=== PATIENT | male | born 1950 | race Caucasian/White ===

== ENCOUNTER 2019-11-24 06:49 | Day surgery (SDC) | payer MEDICARE, BC, MEDICAID ==
[2019-11-21 11:55] LABS: BASOPHILS # (AUTO) 0.05 x10^3/uL (0-0.1); BASOPHILS % (AUTO) 1 % (0-1); EOSINOPHILS # (AUTO) 0.15 x10^3/uL (0-0.4); EOSINOPHILS % (AUTO) 2 % (1-7); LYMPHOCYTES # (AUTO) 1.99 x10^3/uL (1-3.4); LYMPHOCYTES % (AUTO) 30 % (22-44); MD NO; MEAN CORPUSCULAR HEMOGLOBIN 33.1 pg (27.5-34.5); MEAN CORPUSCULAR HGB CONC 33.2 g/dL (33.2-36.2); MEAN PLATELET VOLUME 7.4 fL (7.4-10.4); MONOCYTES # (AUTO) 0.52 x10^3/uL (0.2-0.8); MONOCYTES % (AUTO) 8 % (2-9); NEUTROPHILS # (AUTO) 3.89 x10^3/uL (1.8-6.8); NEUTROPHILS % (AUTO) 59 % (42-75); PLATELET COUNT 208 x10^3/uL (130-400); RED BLOOD COUNT 4.86 x10^6/uL (4.38-5.82); RED CELL DISTRIBUTION WIDTH 14.2 % (9.4-14.8)
[2019-11-21 12:02] LABS: ALBUMIN 3.6 g/dL (3.4-5.0); ANION GAP 6 mmol/L (5-15); CALCIUM 8.8 mg/dL (8.5-10.1); CHLORIDE 104 mmol/L (98-107)
[2019-11-21 12:05] LABS: ALANINE AMINOTRANSFERASE 23 U/L (12-78); ALKALINE PHOSPHATASE 63 U/L (45-117); BILIRUBIN,TOTAL 1.3 mg/dL (0.2-1.0); CREATININE 0.94 mg/dL (0.7-1.3); TOTAL PROTEIN 7.5 g/dL (6.4-8.2)
[2019-11-21 12:18] LABS: INTERNATIONAL NORMALIZED RATIO 1.41 (0.93-1.1); PROTHROMBIN TIME 14.6 Seconds (9.6-11.5)
[~2019-11-24] VITALS: Ht 182.9 cm; Wt 105.6 kg
[~2019-11-24 06:49] MED LIST: DIGO250T3 PO; DILT180C53 PO; DILT30TA33; HYDR-3246 PO; METH750T87 PO; METO25TA35 PO; METO50TA82 PO; OXYC-302 PO; PRAV40TA2 PO; STATIN; TRAM50TA2 PO; WARF-36 PO; WARF1TAB74 PO; WARF4TAB65 PO
[2019-11-24] MEDS ORDERED: CHLORHEXIDINE 15 ML UDC MM STA (07:39)
[2019-11-24] MEDS ORDERED: LACTATED RINGERS 1,000 ML IV SCH (07:39)
[2019-11-24 07:40] VITALS: BP 143/97
[2019-11-24 08:32] LABS: INTERNATIONAL NORMALIZED RATIO 1.05 (0.93-1.1); PROTHROMBIN TIME 10.8 Seconds (9.6-11.5)
[2019-11-24] MEDS ORDERED: MIDAZOLAM 1 MG/ML, 2ML ONE (09:17)
[2019-11-24] MEDS ORDERED: FENTANYL PF 100 MCG/2ML ONE (09:17)
[2019-11-24] MEDS ORDERED: BACITRACIN OINT 500U/GM, 15 GM ONE (09:39)
[2019-11-24] MEDS ORDERED: BUPIVACAINE/PF 0.5% ONE (09:39)
[2019-11-24] MEDS ORDERED: BACITRACIN 50,000 UNIT ONE (09:39)
[2019-11-24] MEDS ORDERED: hydrALAzine 20 MG/ML, 1ML IV PRN (10:30)
[2019-11-24] MEDS ORDERED: LABETALOL 5MG/ML, 20ML IV PRN (10:30)
[2019-11-24] MEDS ORDERED: ONDANSETRON 2MG/ML, 2ML ONE (10:30)
[2019-11-24] MEDS ORDERED: DEXAMETHASONE 4 MG/ML, 1ML ONE (10:30)
[2019-11-24] MEDS ORDERED: PROPOFOL 10 MG/ML, 20ML ONE (10:30)
[2019-11-24] MEDS ORDERED: MEPERIDINE/PF 25MG/0.5ML IVPush PRN (10:30)
[2019-11-24] MEDS ORDERED: ACETAMINOPHEN 325 MG TABLET PO PRN (10:30)
[2019-11-24] MEDS ORDERED: MIDAZOLAM 1 MG/ML, 2ML IV PRN (10:30)
[2019-11-24] MEDS ORDERED: ALBUTEROL SULFATE 2.5 MG/3 ML NPPB PRN (10:30)
[2019-11-24] MEDS ORDERED: CEFAZOLIN 1,000 MG ONE (10:30)
[2019-11-24] MEDS ORDERED: OXYcodone 5 MG/5 ML ORAL.SOL UDC PO PRN (10:30)
[2019-11-24] MEDS ORDERED: FENTANYL PF 100 MCG/2ML IV PRN (10:30)
[2019-11-24] MEDS ORDERED: KETOROLAC 30 MG/1 ML ONE (10:30)
[2019-11-24] MEDS ORDERED: PROMETHAZINE 25 MG/ML, 1ML IVPush PRN (10:30)
== END 2019-11-24 12:15 | disposition home or self-care (01) ==
LOC: OUT 06:49 → EDSTATUS 12:45
PROVIDERS: ATTEND Neurological Surgery
DX: G56.03 Carpal tunnel syndrome, bilateral upper limbs (principal); Z20.828 Contact with and (suspected) exposure to other viral communicable diseases; I48.20 Chronic atrial fibrillation, unspecified; M47.12 Other spondylosis with myelopathy, cervical region; I10 Essential (primary) hypertension; J45.909 Unspecified asthma, uncomplicated; Z79.01 Long term (current) use of anticoagulants; Z79.899 Other long term (current) drug therapy; Z86.19 Personal history of other infectious and parasitic diseases; Z98.890 Other specified postprocedural states; Z82.49 Family history of ischemic heart disease and other diseases of the circulatory system
CPT/HCPCS: 36415; 64721; 80053; 85025; 85610; 85730; 86850; 86900; 87635; 93005; J0690; J1100; J1885; J2250; J2405; J2704; J3010; J7120

== ENCOUNTER 2020-07-04 19:05 | Emergency (ER) | payer MEDICARE, BC, MEDICAID ==
[~2020-07-04] VITALS: Ht 182.9 cm; Wt 100.0 kg
[~2020-07-04 19:05] MED LIST changes: -HYDR-3246 PO; +HYDR-3248 PO; -OXYC-302 PO; +OXYC1TAB14 PO; +PRAV10TA2 PO
[2020-07-04] MEDS ORDERED: ALBU8.5H8 INH (19:28)
[2020-07-04] MEDS ORDERED: OMEP-110 PO (19:28)
--- NOTE | 2020-07-04 19:29 | NUR ---
PT PLACED ON BP CUFF, PULSE OX. PULSE OX READING 89-90% RA. OXYGEN VIA NC AT 2LITERS PLACED. CALL LIGHT WITHIN REACH.
[2020-07-04 20:17] VITALS: BP 132/90
== END 2020-07-04 21:37 | disposition home or self-care (01) ==
LOC: ED 21:03
DX: T17.598A Other foreign object in bronchus causing other injury, initial encounter (principal); R05 Cough; I48.91 Unspecified atrial fibrillation; Z87.891 Personal history of nicotine dependence; X58.XXXA Exposure to other specified factors, initial encounter; Y93.89 Activity, other specified; Y92.89 Other specified places as the place of occurrence of the external cause; Y99.8 Other external cause status
CPT/HCPCS: 71045; 99283